=== PATIENT | male | born 1950 | race Caucasian/White ===

== ENCOUNTER 2018-04-05 07:00 | Emergency (ER) | payer MEDICARE, OTHER ==
[~2018-04-05] VITALS: Ht 177.8 cm; Wt 97.8 kg
--- NOTE | 2018-04-05 07:40 | NUR ---
FIRST CONTACT WITH PT: SAMARA. Pt AOX4, Pt has unlabored respirations equal bilaterally, skin is pink, warm, and dry, cms intact, neuro intact. Pt c/o cough for "a few days" and "not feeling well, vomitting and diarrhea a few days ago, not today". Pt denies chest pain, trauma, n/v/d today, or fever. Pt connected to NIBP, continous pulse ox, and all safety measures in place.
[2018-04-05] MEDS ORDERED: ALBUTEROL SULFATE 2.5 MG/3 ML ONE (07:56)
[2018-04-05] MEDS ORDERED: ALBUTEROL SULFATE 2.5 MG/3 ML NPPB ONE (08:00)
[2018-04-05 08:19] LABS: BASOPHILS # (AUTO) 0.02 x10^3/uL (0-0.1); BASOPHILS % (AUTO) 0 % (0-1); EOSINOPHILS # (AUTO) 0.18 x10^3/uL (0-0.4); EOSINOPHILS % (AUTO) 2 % (1-7); LYMPHOCYTES # (AUTO) 1.76 x10^3/uL (1-3.4); LYMPHOCYTES % (AUTO) 19 % (22-44); MD NO; MEAN CORPUSCULAR HEMOGLOBIN 31.9 pg (27.5-34.5); MEAN CORPUSCULAR HGB CONC 33.1 g/dL (33.2-36.2); MEAN CORPUSCULAR VOLUME 96.3 fL (81-97); MEAN PLATELET VOLUME 7.1 fL (7.4-10.4); MONOCYTES # (AUTO) 1.08 x10^3/uL (0.2-0.8); MONOCYTES % (AUTO) 12 % (2-9); NEUTROPHILS # (AUTO) 6.32 x10^3/uL (1.8-6.8); NEUTROPHILS % (AUTO) 68 % (42-75); PLATELET COUNT 346 x10^3/uL (130-400); RED BLOOD COUNT 4.35 x10^6/uL (4.38-5.82); RED CELL DISTRIBUTION WIDTH 13.2 % (9.4-14.8)
[2018-04-05 08:29] LABS: ALBUMIN 3.1 g/dL (3.4-5.0); ANION GAP 4 mmol/L (5-15); CALCIUM 8.6 mg/dL (8.5-10.1); CHLORIDE 110 mmol/L (98-107); CREATININE 0.92 mg/dL (0.7-1.3)
[2018-04-05 08:33] LABS: TROPONIN I < 0.015 ng/mL (0.000-0.045)
--- NOTE | 2018-04-05 10:22 | NUR ---
Patient given discharge instructions and they have confirmed that they understand the instructions. Patient ambulatory with steady gait. Pt left with all personal belongings, discharge paperwork, and prescription.
[2018-04-05 10:23] VITALS: BP 120/64
== END 2018-04-05 10:29 | disposition home or self-care (01) ==
LOC: ED 08:37
DX: J15.9 Unspecified bacterial pneumonia (principal); F17.200 Nicotine dependence, unspecified, uncomplicated
CPT/HCPCS: 36415; 71045; 80048; 82040; 83880; 84484; 85025; 93005; 94640; 99284; J7613

== ENCOUNTER 2018-04-10 19:20 | Emergency (ER) | payer MEDICARE, OTHER ==
[~2018-04-10] VITALS: Ht 177.8 cm; Wt 97.3 kg
[2018-04-10] MEDS ORDERED: SODIUM CHLORIDE 0.9% 1,000ML IVBOLUS ONE (20:00)
--- NOTE | 2018-04-10 20:41 | NUR ---
assessment made. IV placed. blood and BC x 2 drawn. IVF hung.
[2018-04-10 20:42] LABS: BASOPHILS # (AUTO) 0.08 x10^3/uL (0-0.1); BASOPHILS % (AUTO) 1 % (0-1); EOSINOPHILS # (AUTO) 0.11 x10^3/uL (0-0.4); EOSINOPHILS % (AUTO) 1 % (1-7); LYMPHOCYTES # (AUTO) 2.02 x10^3/uL (1-3.4); LYMPHOCYTES % (AUTO) 15 % (22-44); MD NO; MEAN CORPUSCULAR HEMOGLOBIN 31.5 pg (27.5-34.5); MEAN CORPUSCULAR HGB CONC 33.1 g/dL (33.2-36.2); MEAN CORPUSCULAR VOLUME 95.4 fL (81-97); MEAN PLATELET VOLUME 7.2 fL (7.4-10.4); MONOCYTES # (AUTO) 0.93 x10^3/uL (0.2-0.8); MONOCYTES % (AUTO) 7 % (2-9); NEUTROPHILS # (AUTO) 10.04 x10^3/uL (1.8-6.8); NEUTROPHILS % (AUTO) 76 % (42-75); PLATELET COUNT 335 x10^3/uL (130-400); RED CELL DISTRIBUTION WIDTH 13.4 % (9.4-14.8)
--- NOTE | 2018-04-10 20:48 | NUR ---
PA at bedside for evaluation.
[2018-04-10 20:54] LABS: ANION GAP 7 mmol/L (5-15); CALCIUM 8.5 mg/dL (8.5-10.1); CHLORIDE 112 mmol/L (98-107)
[2018-04-10] MEDS ORDERED: AZITHROMYCIN 500 MG in SODIUM CHLORIDE 0.9% 250 ML IV ONE (21:00)
[2018-04-10] MEDS ORDERED: CEFTRIAXONE 1,000 MG IV SCH (21:00)
[2018-04-10] MEDS ORDERED: CEFTRIAXONE PMX 1GM/50ML 50 ML IV ONE (21:00)
[2018-04-10 21:02] LABS: ALANINE AMINOTRANSFERASE 104 U/L (12-78); ALKALINE PHOSPHATASE 72 U/L (45-117); BILIRUBIN,TOTAL 0.9 mg/dL (0.2-1.0); TOTAL PROTEIN 7.7 g/dL (6.4-8.2)
[2018-04-10] MEDS ORDERED: CEFTRIAXONE PMX 1GM/50ML 50 ML ONE (21:04)
--- NOTE | 2018-04-10 21:14 | NUR ---
PT MEDICATED PER EMAR. PT TOLERATED WELL. PT'S AOX4. RESPS EVEN AND UNLABORED.
--- NOTE | 2018-04-10 22:33 | NUR ---
PT RESTING IN [facility]. ZITHROMAX IS RUNNING STILL. PT'S AOX4. RESPS EVEN AND UNLABORED. ALL MONITORS IN PLACE. CALL LIGHT WITHIN REACH.
--- NOTE | 2018-04-10 22:58 | NUR ---
PT AMB TO BR AND BACK TO ROOM WITH STEADY GAIT.
--- NOTE | 2018-04-10 23:43 | NUR ---
IV antibiotic finished. patient discharged with prescriptions and instruction. verbalized understanding. juices and crackers provided.
[2018-04-10 23:44] VITALS: BP 142/85
== END 2018-04-10 23:46 | disposition home or self-care (01) ==
LOC: ED 22:40
DX: J20.9 Acute bronchitis, unspecified (principal)
CPT/HCPCS: 36415; 71046; 80053; 83605; 84145; 85025; 87040; 93005; 96365; 96368; 99284; J0456; J0696; J7030; J7050; J7512

== ENCOUNTER 2018-04-24 18:19 | Emergency (ER) | payer OTHER ==
[~2018-04-24] VITALS: Ht 180.3 cm; Wt 82.0 kg
--- NOTE | 2018-04-24 18:31 | NUR ---
PT BIBA FOR INTERMITTENT STERNAL CP X 2 DAYS WITH SOB AND COUGH. PT CANNOT QUANTIFY HOW LONG HE HAS HAD COUGH FOR, STATES HE WAS RECENTLY TREATED FOR BRONCHITIS. PT DENIES CP AT THIS TIME. EKG TAKEN BY EDT ON ARRIVAL. MASK PLACED ON PT. ALL MONITORS IN PLACE. CALL LIGHT IN REACH. AWAITING MD AND ORDERS AT THIS TIME.
--- NOTE | 2018-04-24 19:10 | NUR ---
report given to phillip Kennedy.
--- NOTE | 2018-04-24 19:50 | NUR ---
pt reports 5/10 chest pain, resps even and unlabored, sinus tach rate 90s on quill stripper. call light in reach. pt seen by TOMMY Jluio, awaiting labs and cxr at this time.
[2018-04-24 20:13] LABS: BASOPHILS # (AUTO) 0.05 x10^3/uL (0-0.1); BASOPHILS % (AUTO) 0 % (0-1); EOSINOPHILS # (AUTO) 0.12 x10^3/uL (0-0.4); EOSINOPHILS % (AUTO) 1 % (1-7); LYMPHOCYTES % (AUTO) 19 % (22-44); MD NO; MEAN CORPUSCULAR HEMOGLOBIN 31.7 pg (27.5-34.5); MEAN CORPUSCULAR HGB CONC 33.5 g/dL (33.2-36.2); MEAN CORPUSCULAR VOLUME 94.6 fL (81-97); MEAN PLATELET VOLUME 7.2 fL (7.4-10.4); MONOCYTES # (AUTO) 0.76 x10^3/uL (0.2-0.8); MONOCYTES % (AUTO) 6 % (2-9); NEUTROPHILS # (AUTO) 9.41 x10^3/uL (1.8-6.8); NEUTROPHILS % (AUTO) 74 % (42-75); PLATELET COUNT 324 x10^3/uL (130-400); RED BLOOD COUNT 4.59 x10^6/uL (4.38-5.82); RED CELL DISTRIBUTION WIDTH 14.4 % (9.4-14.8)
[2018-04-24 20:23] LABS: ALBUMIN 3.3 g/dL (3.4-5.0); ANION GAP 4 mmol/L (5-15); CALCIUM 9.1 mg/dL (8.5-10.1); CHLORIDE 112 mmol/L (98-107); CREATININE 1.09 mg/dL (0.7-1.3)
[2018-04-24 20:27] LABS: TROPONIN I < 0.015 ng/mL (0.000-0.045)
--- NOTE | 2018-04-24 20:30 | NUR ---
RN discussed pt's symptomology of SOB with CP, with HR 90-100. per ERP, ddimer not indicated at this time. Addendum: 04/24/18 at 204 by CAMILLE RN discussed pt's symptomology of SOB with CP, with HR 90-100 with ERP Sumanth. per ERP, ddimer not indicated at this time.
--- NOTE | 2018-04-24 21:16 | NUR ---
pt resting on gurney, resps even and unlabored, nadn. all results back, chart up for recheck. awaiting further orders at this time.
[2018-04-24] MEDS ORDERED: KETOROLAC 30 MG/1 ML ONE (21:39)
--- NOTE | 2018-04-24 21:54 | NUR ---
verbal order received to admin toradol 30 mg iv push instead of 60 mg im. pt a&o, resps even and unlabored, rates CP at 3/10. pt to be dc'd.
[2018-04-24 21:55] VITALS: BP 164/86
[2018-04-24] MEDS ORDERED: KETOROLAC 30 MG/1 ML IVPush ONE (22:00)
[2018-04-24] MEDS ORDERED: KETOROLAC 30 MG/1 ML IM ONE (22:00)
--- NOTE | 2018-04-24 22:37 | NUR ---
Patient/Caregiver given discharge instructions and they have confirmed that they understand the instructions. Patient ambulatory with steady gait.
--- NOTE | 2018-04-24 22:38 | NUR ---
PT OFFERED CAB VOUCHER, DECLINED.
== END 2018-04-24 22:40 | disposition home or self-care (01) ==
LOC: ED 21:22
DX: M94.0 Chondrocostal junction syndrome [Tietze] (principal); F17.200 Nicotine dependence, unspecified, uncomplicated; I25.2 Old myocardial infarction; I10 Essential (primary) hypertension; Z86.73 Personal history of transient ischemic attack (TIA), and cerebral infarction without residual deficits
CPT/HCPCS: 36415; 71046; 80048; 82040; 84484; 85025; 93005; 96374; 99284; J1885

== ENCOUNTER 2018-05-18 17:45 | Emergency (ER) | payer OTHER, MEDICARE ==
[~2018-05-18] VITALS: Ht 177.8 cm; Wt 93.1 kg
[2018-05-18 18:29] VITALS: BP 127/79
[2018-05-18 18:54] LABS: BASOPHILS # (AUTO) 0.01 x10^3/uL (0-0.1); BASOPHILS % (AUTO) 0 % (0-1); EOSINOPHILS # (AUTO) 0.01 x10^3/uL (0-0.4); EOSINOPHILS % (AUTO) 0 % (1-7); LYMPHOCYTES # (AUTO) 0.95 x10^3/uL (1-3.4); LYMPHOCYTES % (AUTO) 9 % (22-44); MD NO; MEAN CORPUSCULAR HEMOGLOBIN 31.5 pg (27.5-34.5); MEAN CORPUSCULAR HGB CONC 34.1 g/dL (33.2-36.2); MEAN CORPUSCULAR VOLUME 92.5 fL (81-97); MEAN PLATELET VOLUME 7.3 fL (7.4-10.4); MONOCYTES # (AUTO) 0.65 x10^3/uL (0.2-0.8); MONOCYTES % (AUTO) 6 % (2-9); NEUTROPHILS # (AUTO) 8.95 x10^3/uL (1.8-6.8); NEUTROPHILS % (AUTO) 85 % (42-75); PLATELET COUNT 293 x10^3/uL (130-400); RED BLOOD COUNT 5.09 x10^6/uL (4.38-5.82); RED CELL DISTRIBUTION WIDTH 14.2 % (9.4-14.8)
[2018-05-18 19:01] LABS: ALANINE AMINOTRANSFERASE 25 U/L (12-78); ALBUMIN 3.8 g/dL (3.4-5.0); ANION GAP 6 mmol/L (5-15); CALCIUM 9.6 mg/dL (8.5-10.1); CHLORIDE 106 mmol/L (98-107); CREATININE 1.04 mg/dL (0.7-1.3)
[2018-05-18 19:03] LABS: ALKALINE PHOSPHATASE 71 U/L (45-117); BILIRUBIN,TOTAL 0.6 mg/dL (0.2-1.0); TOTAL PROTEIN 7.7 g/dL (6.4-8.2)
--- NOTE | 2018-05-18 19:52 | NUR ---
PT HAS COMPLAINTS OF N/V/D SINCE LAST NIGHT. PT ALSO HAS COMPLAINTS OF ABD PAIN AT THIS TIME. PT DENIES RECENT ABX USAGE.
--- NOTE | 2018-05-18 21:27 | NUR ---
Patient/Caregiver given discharge instructions and they have confirmed that they understand the instructions. Patient ambulatory with steady gait.
== END 2018-05-18 21:28 | disposition home or self-care (01) ==
LOC: ED 21:22
DX: R10.84 Generalized abdominal pain (principal); R11.2 Nausea with vomiting, unspecified; R19.7 Diarrhea, unspecified; I10 Essential (primary) hypertension; I25.2 Old myocardial infarction; Z86.73 Personal history of transient ischemic attack (TIA), and cerebral infarction without residual deficits
CPT/HCPCS: 36415; 80053; 83605; 83690; 85025; 99283

== ENCOUNTER 2018-12-28 05:56 | Emergency (ER) | payer MEDICARE, OTHER ==
[~2018-12-28] VITALS: Ht 177.8 cm; Wt 84.0 kg
[2018-12-28 05:57] VITALS: BP 161/100
--- NOTE | 2018-12-28 06:02 | NUR ---
PT BIB [facility] FOR LBP. PT SEEN AT [facility]ESTERDAY FOR SAME AND STATES "THEY DIDN'T DO ANYTHING FOR ME". PT VSS UPON ARRIVAL TO [facility] ED. PT EDUCATED ON ER PROCESS AND VERBALIZES UNDERSTANDING. PT ASKED TO CHANGE INTO GOWN AND PROVIDED WITH A WARM BLANKET AT TIS TIME. PT HAS CALL LIGHT WITHIN REACH AND DENIES ANY OTHER NEEDS AT THIS TIME.
[2018-12-28] MEDS ORDERED: IBUPROFEN 600 MG TABLET ONE (06:17)
[2018-12-28] MEDS ORDERED: ACETAMINOPHEN 500 MG TABLET ONE (06:17)
--- NOTE | 2018-12-28 06:20 | NUR ---
PT MEDICATED PER MAR FOR PAIN.
[2018-12-28] MEDS ORDERED: IBUPROFEN 600 MG TABLET PO ONE (06:30)
[2018-12-28] MEDS ORDERED: ACETAMINOPHEN 500 MG TABLET PO ONE (06:30)
--- NOTE | 2018-12-28 06:50 | NUR ---
REPORT RECEIVED FROM CAMILLE GEORGE. PLAN OF CARE DISCUSSED. PT GETTING DRESSED, READY FOR D/C.
--- NOTE | 2018-12-28 06:50 | NUR ---
PT D/C WITH D/C SUMMARY. ALL QUESTIONS ANSWERED. PT AMBULATES TO REGISTRATION DESK WITH STEADY GAIT FOR D/C BACK TO ASSISTED. PT DENIES ANY OTHER NEEDS PERTAINING TO THIS VISIT.
== END 2018-12-28 07:00 | disposition home or self-care (01) ==
LOC: ED 06:46
DX: S39.012A Strain of muscle, fascia and tendon of lower back, initial encounter (principal); I10 Essential (primary) hypertension; Z86.73 Personal history of transient ischemic attack (TIA), and cerebral infarction without residual deficits
CPT/HCPCS: 99283

== ENCOUNTER 2019-01-04 21:32 | Emergency (ER) | payer MEDICARE ==
[~2019-01-04] VITALS: Ht 180.3 cm; Wt 75.0 kg
[2019-01-04 21:36] VITALS: BP 168/95
--- NOTE | 2019-01-04 21:44 | NUR ---
PATIENT GIVEN RESOURCES TO FILL HIS SCRIPT. [facility] INFORMATION PAPERWORK PROVIDED, AND PATIENT UNDERSTOOD ALL INSTRUCTIONS.
== END 2019-01-04 21:47 | disposition left against medical advice (07) ==
LOC: ED 21:41
DX: B88.9 Infestation, unspecified (principal); Z53.21 Procedure and treatment not carried out due to patient leaving prior to being seen by health care provider

== ENCOUNTER 2019-01-15 05:55 | Emergency (ER) | payer MEDICARE, MEDICAID ==
[~2019-01-15] VITALS: Ht 177.8 cm; Wt 85.0 kg
[2019-01-15] MEDS ORDERED: ONDANSETRON ODT 4 MG ONE (06:13)
[2019-01-15] MEDS ORDERED: ONDANSETRON ODT 4 MG PO ONE (06:30)
--- NOTE | 2019-01-15 06:33 | NUR ---
Pt given water for po challenge. Awaiting results.
[2019-01-15 06:50] VITALS: BP 151/82
--- NOTE | 2019-01-15 06:51 | NUR ---
Patient finished cup of water. Patient has no complaints.
== END 2019-01-15 07:46 | disposition home or self-care (01) ==
LOC: ED 07:13
DX: K52.9 Noninfective gastroenteritis and colitis, unspecified (principal); Z59.0 Homelessness; I25.2 Old myocardial infarction; I10 Essential (primary) hypertension; Z86.73 Personal history of transient ischemic attack (TIA), and cerebral infarction without residual deficits
CPT/HCPCS: 99283; Q0162

== ENCOUNTER 2019-01-20 12:42 | Emergency (ER) | payer MEDICARE, MEDICAID ==
[~2019-01-20] VITALS: Ht 180.3 cm; Wt 84.3 kg
[2019-01-20 12:50] VITALS: BP 139/80
[2019-01-20] MEDS ORDERED: MECLIZINE CHEWABLE 25 MG TAB ONE (13:14)
[2019-01-20] MEDS ORDERED: MECLIZINE CHEWABLE 25 MG TAB PO ONE (13:30)
[2019-01-20 13:36] LABS: BASOPHILS # (AUTO) 0.03 x10^3/uL (0-0.1); BASOPHILS % (AUTO) 0 % (0-1); EOSINOPHILS # (AUTO) 0.33 x10^3/uL (0-0.4); EOSINOPHILS % (AUTO) 3 % (1-7); LYMPHOCYTES # (AUTO) 1.82 x10^3/uL (1-3.4); LYMPHOCYTES % (AUTO) 19 % (22-44); MD NO; MEAN CORPUSCULAR HEMOGLOBIN 31.1 pg (27.5-34.5); MEAN CORPUSCULAR HGB CONC 33.1 g/dL (33.2-36.2); MEAN CORPUSCULAR VOLUME 93.8 fL (81-97); MONOCYTES # (AUTO) 0.54 x10^3/uL (0.2-0.8); MONOCYTES % (AUTO) 6 % (2-9); NEUTROPHILS % (AUTO) 72 % (42-75); PLATELET COUNT 246 x10^3/uL (130-400); RED BLOOD COUNT 5.13 x10^6/uL (4.38-5.82); RED CELL DISTRIBUTION WIDTH 13.7 % (9.4-14.8)
[2019-01-20 13:48] LABS: ALBUMIN 3.5 g/dL (3.4-5.0); ANION GAP 7 mmol/L (5-15); CALCIUM 8.8 mg/dL (8.5-10.1); CHLORIDE 114 mmol/L (98-107); CREATININE 0.88 mg/dL (0.7-1.3)
[2019-01-20 13:52] LABS: TROPONIN I < 0.015 ng/mL (0.000-0.045)
[2019-01-20] MEDS ORDERED: SODIUM CHLORIDE 0.9% 1,000ML IVBOLUS ONE (14:00)
== END 2019-01-20 15:28 | disposition home or self-care (01) ==
LOC: ED 13:50
DX: R42 Dizziness and giddiness (principal); E86.0 Dehydration; R06.02 Shortness of breath; Z72.9 Problem related to lifestyle, unspecified; I10 Essential (primary) hypertension; I25.2 Old myocardial infarction; F17.200 Nicotine dependence, unspecified, uncomplicated; Z86.73 Personal history of transient ischemic attack (TIA), and cerebral infarction without residual deficits; Z90.89 Acquired absence of other organs
CPT/HCPCS: 36415; 71045; 80048; 82040; 84484; 85025; 93005; 96360; 99284; J7030